=== PATIENT | male | born 1970 | race Caucasian/White ===

== ENCOUNTER 2022-04-20 19:59 | Emergency (ER) | payer MEDICAID, SELFPAY ==
[2022-04-20 20:03] VITALS: BP 179/107; PULSE 97; RESP 20; TEMP 35.7; O2SAT 96; BMI 45.1
--- NOTE | 2022-04-20 21:31 | EDS_ITS ---
HPI History of Present Illness Chief Complaint: Edema Detail of Chief Complaint: Swelling to abdomen and legs and shortness of breath Informant: patient Narrative Narrative: Patient presents the emergency department via EMS from home. Patient states that he was at his mother's house and felt like his abdomen and back and legs were swelling persistently. Patient was just discharged from [facility] where he spent 2 days admitted for CHF and hypercarbia related to his obesity and sleep apnea. Patient states that he thinks he had a echocardiogram and they told him the bottom of his heart was not functioning normally. Patient states that once he got home he did not realize he did not have his oxygen on him as he was supposed to be on 2 to 3 L of oxygen. He started feeling more short of breath and called EMS. Once they put him on oxygen started feeling back to his baseline. Patient tells me he weighs 375 pounds. Patient states he scheduled for gastric bypass. They made him follow-up appointments with cardiology. [facility] Medical History (Updated 04/20/22 @ 21:[address] Jasen Moncada DO) CHF (congestive heart failure) Diabetes Allergy/AdvReac Type Severity Reaction Status Date / Time hydrochlorothiazide AdvReac Chest Verified 04/20/22 20:03 tightness Social History Smoking Status: Former smoker ROS ROS ED Review of Systems ROS Unobtainable: other Constitutional Constitutional ED: Reports lethargy; Denies chills, fever(s), sweats or weight loss Eyes Eyes: Denies blurry vision, change in vision or diplopia ENT ENT ED: Denies rhinorrhea or sore throat Cardiovascular Cardiovascular: Reports other Details: Leg edema ; Denies chest pain, orthopnea or racing heartbeat Respiratory/Chest Respiratory/Chest: Reports dyspnea and dyspnea on exertion; Denies cough, orthopnea or sputum Gastrointestinal Gastrointestinal: Denies abdominal pain, diarrhea, nausea or vomiting Genitourinary Genitourinary ED: Denies dysuria, hematuria or urinary frequency Musculoskeletal Musculoskeletal: Denies arthralgias, back pain, myalgias or neck pain Integumentary Denies abscess, Abrasions or rash Neurologic Neurologic: Denies headache(s) or weakness Psychiatric Psychiatric: Denies anxiety, depression or suicidal thoughts Endocrine Endocrinology: Denies polydipsia, polyphagia or polyuria Hematologic/Lymphatic Hematologic/Lymphatic: Denies easy bleeding, easy bruising or lymphadenopathy Allergic/Immunologic Allergic/Immunologic ED: Denies mouth swelling, tongue swelling or urticaria EXAM Physical Exam Narrative Exam Narrative: Patient morbidly obese. Const Vital Signs: 04/20/22 20:03 04/20/22 20:07 Temperature 96.3 F L Temperature Source Temporal Pulse Rate 97 Respiratory Rate 20 H Respiratory Effort Normal Respiratory Pattern Normal Blood Pressure 179/107 H Blood Pressure Mean 131 Pulse Ox 96 Oxygen Delivery Method Nasal Cannula Oxygen Flow Rate (L/min) 3 Positive well nourished and well developed General Appearance ED: well developed and NAD HEENT Reports TM's clear and moist mucous membranes normocephalic and atraumatic; Negative for trauma or tenderness Tympanic Membrane ED: Yes TM's clear Eyes PERRL and EOMs intact bilaterally General Eye ED: Negative for pale conjunctiva or scleral icterus Neck no lymphadenopathy, supple and no JVD General: Negative for tenderness Chest Wall inspection of chest normal and palpation of chest normal Chest: Negative for tenderness Resp normal respiratory effort and clear to auscultation bilaterally Resp Narrative: No significant tachypnea. No sensory muscle use or retractions. Lungs are relatively clear with just a few faint crackles in the bases. Effort and Inspection: Negative for respiratory distress or pain with movement Auscultation: Negative for rhonchi, wheezes or diminished lung sounds Cardio regular rate, regular rhythm, S1 normal heart sound, S2 normal heart sound and no murmurs Peripheral Pulses: pulses 2+ throughout GI normal to inspection, nondistended, normoactive bowel sounds, soft to palpation, non-tender, non-distended and no masses GI Narrative: Patient does have edema to his abdomen. Back/Spine no CVA tenderness and no thoracic nor lumbar tenderness Extremity normal to inspection Extremity Narrative: +2 edema both lower extremities up to the thighs. General Extremety ED: Negative for edema General Extremity: Negative for edema Neuro oriented x3, CN's II-XII intact bilaterally, no sensory deficits noted and gait normal Sensorium / Orientation: awake, alert, oriented to person, oriented to place and oriented to time Motor Exam: strength 5/5 throughout and strength abnormal Psych mental status grossly normal Skin no rashes or lesions noted and no wounds MDM MDM MDM Narrative Medical decision making narrative: Patient tells me that he thinks that he may have jumped the gun and panicked. Patient states that he had a family member recently who came home and coded and then had to go back to the hospital and she ended up having fluid around her heart and lungs. Patient feels well currently. I discussed doing some basic labs and a chest x-ray and EKG to evaluate his condition further however he does not want me to pursue that since he was just discharged and thinks that he just had a panic episode regarding his condition and his oxygen not being on. Patient would like to be discharged home. Patient is in no respiratory distress and I feel it is reasonable to discharge him at this time. Patient advised to return if increasing shortness of breath or condition worsen anyway. Discharge Plan Triage Chief Complaint: Edema ED Provider: Jasen Moncada Dx/Rx/DC Orders Clinical Impression: CHF (congestive heart failure), Leg edema Instructions: ED Heart Failure, Congestive (CHF), ED Peripheral Edema, Bilateral Primary Care Provider: Andrea Alston Referrals: Andrea Alston MD [Primary Care Provider] - 3-5 Days Activity Restrictions/Additional Instructions: Follow-up with your film or tape librarian as advised. Disposition Disposition: Home, Self Care
[2022-04-20 22:12] VITALS: BP 167/93; PULSE 97; RESP 22; O2SAT 95
== END 2022-04-20 22:13 | disposition home or self-care (01) ==
PROVIDERS: Emergency Provider Emergency Medicine; PCP Family Medicine; Visit Provider Emergency Medicine
DX: R60.0 Localized edema (principal); I50.9 Heart failure, unspecified; E11.9 Type 2 diabetes mellitus without complications; R19.00 Intra-abdominal and pelvic swelling, mass and lump, unspecified site; M79.89 Other specified soft tissue disorders; R06.02 Shortness of breath; E66.9 Obesity, unspecified; Z87.891 Personal history of nicotine dependence
CPT/HCPCS: 99284

== ENCOUNTER 2023-02-28 16:55 | Inpatient (IN) | payer MEDICAID, SELFPAY ==
[2023-02-28] VITALS (10 sets, daily range): BP systolic 156–197; BP diastolic 85–125; PULSE 80–98; RESP 18–28; TEMP 36.6–36.7; O2SAT 79–96; BMI 64.9; BMI 61.5
--- NOTE | 2023-02-28 17:21 | NURSING ---
NO OLD EKGS
--- NOTE | 2023-02-28 17:23 | EDS_ITS ---
HPI History of Present Illness Chief Complaint: General Illness Detail of Chief Complaint: Increased leg swelling. Shortness of breath. Informant: patient Onset/Context/Timing Onset: Weeks Context: Gradual Onset Timing: Continuous Current Severity: Mild Maximum Severity: Mild Narrative Narrative: 53-year-old male history of CHF, diabetes and PTSD. States the last several weeks has been increasing weight. Been having increasing swelling in his legs. He has chronic peripheral edema. He has had CHF before and says this feels the same. Denies any chest pain. No fever. Also has a wound on his right knee when he fell several weeks ago. Now is red. Prior similar symptoms: Yes Recent Illness/Hospitalization: No PFSH PFSH Medical History Abdominal swelling Acute respiratory failure with hypoxia and hypercapnia ADHD Anxiety Asthenia CHF (congestive heart failure) Fluid overload GERD (gastroesophageal reflux disease) Hyperlipidemia MDD (major depressive disorder) Morbid obesity Neuropathy Obesity hypoventilation syndrome KAVON on CPAP Pain and swelling of lower leg PTSD (post-traumatic stress disorder) Type 2 diabetes mellitus Home Medications acetaminophen 650 mg tablet,extended release (Arthritis Pain Relief (acetaminophen) ER) 1,300 mg PO Q8H PRN pain 05/14/22 [History Last Taken Unknown] albuterol sulfate 90 mcg/actuation aerosol inhaler 2 puff inhalation Q6H PRN shortness of breath or wheezing 05/14/22 [History Last Taken Unknown] atorvastatin 40 mg tablet 40 mg PO QHS 05/14/22 [History Last Taken Unknown] furosemide 20 mg tablet 20 mg PO BID 05/14/22 [History Last Taken Unknown] insulin degludec 200 unit/mL (3 mL) subcutaneous pen (Tresiba FlexTouch U-200 insulin) 92 unit subcut DAILY 05/14/22 [History Last Taken Unknown] lisinopril 40 mg tablet 40 mg PO DAILY 05/14/22 [History Last Taken Unknown] omeprazole 40 mg capsule,delayed release 40 mg PO DAILY 05/14/22 [History Last Taken Unknown] potassium citrate 5 mEq (540 mg) tablet,extended release 5 meq PO DAILY 05/14/22 [History Last Taken Unknown] pregabalin 150 mg capsule 150 mg PO TID 05/14/22 [History Last Taken Unknown] insulin lispro 100 unit/mL subcutaneous pen (Humalog Tempo Pen (U-100) Insulin) 10 unit subcut TID 05/25/22 [History Last Taken Unknown] metoprolol tartrate 50 mg tablet 100 mg PO BID 05/25/22 [History Last Taken Unknown] Allergy/AdvReac Type Severity Reaction Status Date / Time hydrochlorothiazide AdvReac Chest Verified 02/28/23 16:57 tightness Family History Mother Diabetes Hypertension Hyperchloremia CAD (coronary artery disease) Father Diabetes Hypertension Hyperchloremia Surgical History Hx of cholecystectomy Hx of knee surgery Hx of tracheostomy Social History Smoking Status: Former smoker alcohol intake: never substance use type: marijuana caffeine: No ROS ROS ED ROS Narrative Orthopnea. Exertional dyspnea. Weight gain. Review of Systems ROS Unobtainable: Denies due to encephalopathy Constitutional Constitutional ED: Denies chills or fever(s) Eyes Eyes: Denies blurry vision ENT ENT ED: Denies ear pain Cardiovascular Cardiovascular: Reports orthopnea; Denies chest pain Respiratory/Chest Respiratory/Chest: Reports dyspnea, dyspnea on exertion and orthopnea; Denies cough Gastrointestinal Gastrointestinal: Denies abdominal pain, constipation, diarrhea, melena, nausea or vomiting Genitourinary Genitourinary ED: Denies dysuria or hematuria Musculoskeletal Musculoskeletal: Denies arthralgias Integumentary Denies abscess Neurologic Neurologic: Denies headache(s) Psychiatric Psychiatric: Denies anxiety or depression Hematologic/Lymphatic Hematologic/Lymphatic: Reports none Allergic/Immunologic Allergic/Immunologic ED: Denies mouth swelling, tongue swelling or urticaria EXAM Physical Exam Narrative Exam Narrative: 53-year-old male no acute distress other than his pulse ox was 85% in triage on room air. 93% on 2 L. H EENT exam unremarkable. Neck nontender no JVD. Lungs clear to auscultation bilaterally. Heart regular rhythm no appreciable murmur. Abdomen soft nontender. Moving all 4 extremities. 1+ pitting edema both lower extremities. Neurologically is awake and alert no focal motor deficits. Exam is consistent with CHF. He also has a wound on his right knee about the size of a quarter and has some mild surrounding cellulitis. There is no purulent discharge at this time. No lymphangitic streaking. The knee itself he has normal range of motion and no signs of septic joint or septic bursitis. Const Vital Signs: 02/28/23 16:57 02/28/23 17:06 02/28/23 19:20 Temperature 97.9 F Temperature Source Temporal Pulse Rate 85 Respiratory Rate 19 H Blood Pressure 184/91 H Blood Pressure Mean 122 Pulse Ox 85 93 79 Oxygen Delivery Method Room Air Nasal Cannula Room Air Oxygen Flow Rate (L/min) 2 02/28/23 19:20 Temperature Temperature Source Pulse Rate 98 Respiratory Rate 28 H Blood Pressure 173/98 H Blood Pressure Mean 123 Pulse Ox 92 Oxygen Delivery Method Nasal Cannula Oxygen Flow Rate (L/min) 3 Positive well nourished, well developed and obese; Negative for cachectic, contractures or unkempt General Appearance ED: well developed and NAD; Negative for unkempt, cachectic, contractures, cyanotic or diaphoretic Nutritional Appearance: obese; Negative for cachectic HEENT Reports moist mucous membranes Negative for trauma or tenderness Eyes PERRL and EOMs intact bilaterally General Eye ED: Negative for pale conjunctiva or scleral icterus Neck no lymphadenopathy, supple and no JVD General: Negative for tenderness Lymph Lymphatic: Negative for other Chest Wall inspection of chest normal and palpation of chest normal Resp normal respiratory effort and clear to auscultation bilaterally Effort and Inspection: Negative for retractions Auscultation: Negative for rales, rhonchi or wheezes Cardio regular rate, regular rhythm, S1 normal heart sound, S2 normal heart sound and no murmurs GI normal to inspection, nondistended, normoactive bowel sounds, non-tender, non- distended and no masses Inspection: Negative for abdominal distention Auscultation: normoactive bowel sounds Palpation: soft; Negative for tender or guarding Back/Spine no CVA tenderness Extremity normal to inspection General Extremety ED: Yes edema; Negative for tenderness General Extremity: edema Neuro oriented x3 and CN's II-XII intact bilaterally Sensorium / Orientation: alert Motor Exam: strength 5/5 throughout Psych mental status grossly normal Appearance: Negative for unkempt Attitude: No agitated Mood & Affect: Negative for depressed, anxious or tearful Skin no rashes or lesions noted and No no wounds Skin Narrative: Wound right knee. Minimal surrounding cellulitis. Lesions: No lesion noted Rashes: rashes noted Trauma: Negative for abrasion Wounds: wounds noted Image ED - Body Diagram Man: 1. Quarter sized wound with surrounding cellulitis. No septic knee nor septic bursitis. MDM MDM MDM Narrative Medical decision making narrative: 53-year-old male history of CHF with weight gain and increasing shortness of breath including orthopnea. Hypoxic in triage on room air 85%. 93% on 2 L. Will undergo a CHF work-up. He also incidentally has a right knee wound infection with mild surrounding cellulitis. Repeat exam patient is doing well at 8:02 PM. He is on oxygen his sat went from 85 to 98% on 3 L. He was also given Lasix. He will be admitted for congestive heart failure the hospitalist on page. Patient be treated with IV Lasix. History & Record Review Discussion w/independent historian: Patient Additional record(s) reviewed:: Prior inpatient record, Prior outpatient record, Prior ED visit and Prior labs Lab Data Attestation: I reviewed the patient's lab results. Lab results narrative: CBC shows a white count of 10 H&H of 14 and 49. Platelets 242. Electrolytes show sodium 142 gap of 3 normal BUN and creatinine is 17 and 1. Glucose of 258. Troponin is normal at 19. BNP is only 94. Chest x-ray is consistent with congestive heart failure. Labs: Laboratory Results - last 24 hr 02/28/23 17:20 WBC 10.7 RBC 5.95 Hgb 14.9 Hct 49.4 MCV 83.0 MCH 25.0 L MCHC 30.2 L RDW Std Deviation 42.6 RDW Coeff of Nohemi 14.2 Plt Count 242 MPV 10.5 Immature Gran % (Auto) 0.400 Neut % (Auto) 74.2 H Lymph % (Auto) 19.2 Gage % (Auto) 4.1 Eos % (Auto) 1.7 Baso % (Auto) 0.4 Absolute Neuts (auto) 8.0 H Absolute Lymphs (auto) 2.06 Nucleated RBC % 0 Sodium 142 Potassium 3.9 Chloride 101 Carbon Dioxide 38.0 H Anion Gap 3 L BUN 17 Creatinine 1.11 Estim Creat Clear Calc 78.73 Est GFR (MDRD) Af Amer 90 Est GFR (MDRD) Non-Af 74 BUN/Creatinine Ratio 15.3 Glucose 258 H Calcium 8.4 L Troponin I High Sens 19 B-Natriuretic Peptide 94.1 Radiography Chest X-Ray - ED: 1 View, Read by ED Physician, Mediastinum, Bony Structures, Cardiomegaly and CHF Diagnostic Testing: Clinical Impression(s) from Imaging Studies Chest X-Ray 02/28/23 17:30 IMPRESSION: Mild congestive heart failure. Electronically Signed: Alverto Lozano MD at 18:15 EDT , Chest x-ray, portable, single view, interpreted both myself and radiologist shows cardiomegaly and CHF. Rhythm Strip Rhythm Strip: Sinus Rhythm Rate: 83 Ectopy: None EKG Initial EKG: Attestation: I personally reviewed and interpreted this EKG as follows: Interpretation: Sinus Rhythm and No Acute Injury Pattern Comments: Normal sinus rhythm rate 83 no acute signs of OK or ischemia. Discharge Plan Dx/Rx/DC Orders Clinical Impression: CHF (congestive heart failure), Hypoxia, History of diabetes mellitus, Cellulitis of knee, right Disposition Disposition: Acute Care Hospital [facility]
--- NOTE | 2023-02-28 17:30 | RAD_ITS ---
STUDY: X-RAY CHEST REASON FOR EXAM: Male, 53 years old. chest pain TECHNIQUE: Single AP portable view of the chest. COMPARISON: None. FINDINGS: The lungs are clear and expanded. There is no demonstrated pleural abnormality. There is moderate cardiac enlargement. Normal mediastinum and kevin. There is prominence of the pulmonary hilar arteries and peripheral pulmonary arteries, consistent with congestive heart failure (CHF). Normal visualized aortic arch and descending thoracic aorta. Normal visualized thoracic spine. Normal visualized ribs, clavicles, and shoulders. There is no demonstrated abnormality of the visualized soft tissue structures of the upper abdomen. RAD/Chest 1 View (Portable) IMPRESSION: Mild congestive heart failure. Electronically Signed: Alverto Lozano MD at 18:15 EDT ,
[2023-02-28] MEDS: Furosemide 40 MG/4 ML Vial IV (17:32)
[2023-02-28 17:34] LABS: Absolute Lymphocyte Count 2.06 X10^3/uL (0.83-4.51); Basophil# 0.04 X10^3/uL; Basophil% 0.4 % (0-1); Eosinophil# 0.18 X10^3/uL; Eosinophils% 1.7 % (0-5); Hematocrit 49.4 % (40-54); Hemoglobin 14.9 g/dL (13.0-16.5); Lymphocyte # 2.06 X10^3/ul (0.83-4.51); Lymphocyte % 19.2 % (19-41); Mean Corp Hgb Conc 30.2 g/dL (32-36); Mean Platelet Vol. 10.5 fl (6.2-12.0); Monocyte# 0.44 X10^3/uL; Monocyte% 4.1 % (0-10); NRBC Flagged by Analyzer 0 % (0-5); Neutrophil # 7.97 X10^3/uL (2.7-7.7); Neutrophil % 74.2 % (47-70); Platelet Count 242 K/mm3 (150-450); RBC Distribution Width CV 14.2 % (11.6-14.6); RBC Distribution Width SD 42.6 fl (35.1-43.9); Red Blood Count 5.95 M/mm3 (4.6-6.2); White Blood Count 10.7 K/mm3 (4.4-11.0)
[2023-02-28 18:02] LABS: BNP,B-Type NATRIURETIC PEPTIDE 94.1 pg/mL (0-100)
[2023-02-28 18:20] LABS: Anion Gap 3 (5-15); BUN 17 mg/dL (7-18); BUN/Creat Ratio 15.3 RATIO (10-20); Calcium,Total 8.4 mg/dL (8.5-10.1); Chloride 101 mmol/L (98-107); Creatinine, Serum 1.11 mg/dL (0.70-1.30); EST Glomerular Filtration Rate 74 mL/min (>60); Est Glom Filt Rate - Afr Amer 90 mL/min (>60); Estimated Creatinine Clearance 78.73 ml/min; Glucose 258 mg/dL (74-106); Potassium 3.9 mmol/L (3.5-5.1); Sodium Level 142 mmol/L (136-145); Troponin-I HS 19 pg/mL (3.0-78.0)
--- NOTE | 2023-02-28 20:46 | ED.RN ---
this nurse called [facility] and explained that the pt did not receive his keflex 500mg po. this nurse sent to [facility] via tube system.
--- NOTE | 2023-02-28 20:57 | HP.PCM.HOS_ITS ---
HPI - General General Date of Admission: 02/28/23 Date of Service: 02/28/23 Chief Complaint: Patient came to ER for right knee wound. He also has weight gain, leg swelling dyspnea on exertion and features of heart failure HPI Narrative EVERARDO OLIVAS, is a 53 M came to ED who for increased weight gain, increased swelling in the legs and peripheral edema. He is not very clear exactly how much weight gain in how much time but he states 50 to 60 pounds in couple months. Patient pulse ox is also low 85% on room air in ED. Is well he is not on oxygen at home. 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 He states he had an echo recently this year and EF was 53%. Patient denies chest pain pressure or tightness. No fever. Apparently patient had also fall several weeks ago and had right knee wound. He said it was scabbing then he scratched and he again fell down couple days ago and now seems worsening. Looks dry with no discharge. In ED BP was high at 180/91. Afebrile required 2 to 3 L of oxygen. Chest x-ray reviewed shows pulmonary venous congestion/edema/2 mild congestive heart failure. Twelve-lead EKG showed normal sinus rhythm QTc 455 ms, low voltage QRS complexes. Patient is given Lasix and Keflex and further admitted. [facility] Medical History Abdominal swelling Acute respiratory failure with hypoxia and hypercapnia ADHD Anxiety Asthenia CHF (congestive heart failure) Fluid overload GERD (gastroesophageal reflux disease) Hyperlipidemia MDD (major depressive disorder) Morbid obesity Neuropathy Obesity hypoventilation syndrome KAVON on CPAP Pain and swelling of lower leg PTSD (post-traumatic stress disorder) Type 2 diabetes mellitus Home Medications acetaminophen 650 mg tablet,extended release (Arthritis Pain Relief (acetaminophen) ER) 1,300 mg PO Q8H PRN pain 05/14/22 [History Last Taken Unknown] albuterol sulfate 90 mcg/actuation aerosol inhaler 2 puff inhalation Q6H PRN shortness of breath or wheezing 05/14/22 [History Last Taken Unknown] atorvastatin 40 mg tablet 40 mg PO QHS cholesterol 05/14/22 [History Last Taken 02/27/23] insulin degludec 200 unit/mL (3 mL) subcutaneous pen (Tresiba FlexTouch U-200 insulin) 92 unit subcut DAILY diabetes 05/14/22 [History Last Taken 02/27/23] lisinopril 40 mg tablet 40 mg PO BID blood pressure 05/14/22 [History Last Taken 02/28/23 10:00] omeprazole 40 mg capsule,delayed release 40 mg PO DAILY acid reflux 05/14/22 [History Last Taken 02/28/23] potassium citrate 5 mEq (540 mg) tablet,extended release 5 meq PO BID potassium supplement 05/14/22 [History Last Taken 02/28/23 10:00] pregabalin 150 mg capsule 150 mg PO TID neuropathy 05/14/22 [History Last Taken Unknown] insulin lispro 100 unit/mL subcutaneous pen (Humalog Tempo Pen (U-100) Insulin) 10 unit subcut TIDCM diabetes 05/25/22 [History Last Taken Unknown] metoprolol tartrate 50 mg tablet 50 mg PO BID heart 05/25/22 [History Last Taken 02/28/23 10:00] amlodipine 5 mg tablet 5 mg PO DAILY blood pressure 02/28/23 [History Last Taken 02/28/23] furosemide 40 mg tablet 40 mg PO BID diuretic 02/28/23 [History Last Taken 02/28/23 10:00] spironolactone 25 mg tablet 25 mg PO DAILY diuretic 02/28/23 [History Last Taken 02/28/23] Allergy/AdvReac Type Severity Reaction Status Date / Time hydrochlorothiazide AdvReac Chest Verified 02/28/23 16:57 tightness Family History (Updated 02/28/23 @ 21:37 by Kristal Rizzo) Mother Diabetes CAD (coronary artery disease) Hypertension Hyperchloremia Non-alcoholic cirrhosis Father Diabetes Hypertension Hyperchloremia Surgical History Hx of cholecystectomy Hx of knee surgery Hx of tracheostomy Social History Smoking Status: Former smoker alcohol intake: never substance use type: marijuana caffeine: No ROS ROS Narrative Constitutional: Reports fatigue and weakness. No fever. Morbid obesity. HEENT: Reports systems reviewed and no addt'l complaints, except as documented Respiratory/Chest: Exertional dyspnea. CVS: No chest pain pressure or tightness. Gastrointestinal: Denies coffee ground emesis, hematemesis or vomiting Genitourinary: Denies burning urination or new urinary tract symptoms. No decrease in urine output. Musculoskeletal: Patient mainly on wheelchair states because of neuropathy of the legs and arthritis. Denies acute joint pain or limited range of motion. Neurologic: Denies seizure-like symptoms. Denies strokelike symptoms. skin: Fall with ulcer was healing and then again a fall with surrounding redness cellulitis. Endocrinology: Reports systems reviewed and no addt'l complaints, except as documented Hematologic/Lymphatic: Reports systems reviewed and no addt'l complaints, except as documented Rest 14 ROS are negative except as mentioned in HPI Vital Signs Vital Signs Vital Signs: 02/28/23 16:57 02/28/23 17:06 02/28/23 19:20 Temperature 97.9 F Temperature Source Temporal Pulse Rate 85 Respiratory Rate 19 H Blood Pressure 184/91 H Blood Pressure Mean 122 Pulse Ox 85 93 79 Oxygen Delivery Method Room Air Nasal Cannula Room Air Oxygen Flow Rate (L/min) 2 02/28/23 19:20 02/28/23 20:39 02/28/23 20:39 Temperature Temperature Source Pulse Rate 98 80 80 Respiratory Rate 28 H 24 H 24 H Blood Pressure 173/98 H 195/95 H 195/95 H Blood Pressure Mean 123 128 128 Pulse Ox 92 96 96 Oxygen Delivery Method Nasal Cannula Nasal Cannula Oxygen Flow Rate (L/min) 3 3 02/28/23 20:54 Temperature 98.0 F Temperature Source Oral Pulse Rate 88 Respiratory Rate 20 H Blood Pressure 194/125 H Blood Pressure Mean 148 Pulse Ox 94 Oxygen Delivery Method Nasal Cannula Oxygen Flow Rate (L/min) 3 Weight Weight: 439 lb 9.628 oz Body Mass Index (BMI) 64.9 Physical Exam Narrative General: Alert, Oriented x3, Cooperative. BMI 64.9 kg/m? HEENT: Atraumatic, PERRLA, EOMI, Normocephalic Oral: Oral mucosa dry. No Gingival or Mucosal Lesions/ Ulcerations Neck: Supple, No JVD, Negative Carotid Bruits Lungs: Air entry diminished in bilateral lung bases. Bilateral fine crepitation although difficult to hear Cardiovascular: Regular rate, Regular Rhythm, Normal S1, Normal S2, No murmurs Abdomen: Bowel Sounds Present, Soft, Non Tender, Non-Distended : No renal angle tenderness. No suprapubic tenderness. Extremities: 3+ bilateral lower extremity edema below thigh level, Capillary Refill Less than 3 Seconds Skin: Erythema, mild tenderness Around knee. Scab wound on kneecap/ infrapatellar region with no obvious discharge. Musculoskeletal: No Tenderness to Palpation of Joints or Extremities. ROM severely restricted due to morbid obesity and neuropathy Neurological: Cranial nerves II-XII grossly intact, DTR 2+/4. No acute focal neurological deficit. Psych/Mental Status: flat affect. Results Lab / Micro Data 02/28/23 17:20 02/28/23 17:20 Labs: Laboratory Results - last 24 hr 02/28/23 17:20: WBC 10.7, RBC 5.95, Hgb 14.9, Hct 49.4, MCV 83.0, MCH 25.0 L, MCHC 30.2 L, RDW Std Deviation 42.6, RDW Coeff of Nohemi 14.2, Plt Count 242, MPV 10.5, Immature Gran % (Auto) 0.400, Neut % (Auto) 74.2 H, Lymph % (Auto) 19.2, [place] % (Auto) 4.1, Eos % (Auto) 1.7, Baso % (Auto) 0.4, Absolute Neuts (auto) 8.0 H, Absolute Lymphs (auto) 2.06, Nucleated RBC % 0, Sodium 142, Potassium 3.9, Chloride 101, Carbon Dioxide 38.0 H, Anion Gap 3 L, BUN 17, Creatinine 1.11, Estim Creat Clear Calc 78.73, Est GFR (MDRD) Af Amer 90, Est GFR (MDRD) Non-Af 74, BUN/Creatinine Ratio 15.3, Glucose 258 H, Calcium 8.4 L, Troponin I High Sens 19, B-Natriuretic Peptide 94.1 Rhythm Strip Rhythm Strip: Sinus Rhythm Rate: 83 Ectopy: None Radiology Impression Chest X-Ray 02/28/23 17:30 IMPRESSION: Mild congestive heart failure. Electronically Signed: Alverto Lozano MD at 18:15 EDT , Assessment & Plan Assessment/Plan (1) Acute on chronic heart failure with normal ejection fraction: PLAN: Plan 1. 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 In the our system godwin cardozo had echo in [place] from 04/27/2022. It was of poor quality.Patient 2D echo on 04/19/2022 reported LV not well visualized cannot comment on wall motion or EF. RV not well visualized. Estimated right atrial pressure 15 IVC dilated. RVSP 46 mmHg. I think patient also had 2D echo in cardiology office. Started on Lasix 40 mg IV twice daily. Heart failure core measures including intake and output, fluid restriction less than 1500 mL, daily weight monitoring, kidney and electrolytes monitoring. Patient on metoprolol 100 mg twice daily. Patient saw Dr. Peterson in the office in May 2022. Had negative dobutamine stress test in 2020. 2 serial troponins are negative therefore ACS ruled out. Patient did not have chest pain or pressure. BNP spuriously low due to morbid obesity. 2. Uncontrolled hypertension: Blood pressure in systolic 180s to 190s. Continue home medication lisinopril 40 mg daily. Started on Hydralazine and nitrate for control of blood pressure and heart failure exacerbation. Labetalol 20 mg IV as needed for SBP more than 190 mmHg. 3. Uncontrolled diabetes mellitus: Patient has type 2 diabetes mellitus. Glucose 258. 4. Right knee wound with a scab from fall and surrounding cellulitis: Started on IV ceftriaxone daily. Wound care nurse ordered. Knee x-ray shows no radiographic evidence of osteomyelitis. Severe arthrosis. 5. Super morbid obesity with obstructive sleep apnea/obesity hypoventilation syndrome on CPAP: CPAP ordered. Need to follow-up in pulmonary clinic. As per last cardiology visit patient is high risk for morbid obesity surgery also. 6. Multiple other comorbidities include GERD, hyperlipidemia, bilateral peripheral neuropathy, degenerative arthritis of knees, PTSD and ADHD: Home medication reconciliation done. Living will/advanced directive/end of life care: Patient does not have living will or advanced directive. Patient does not have designated power of caving guide for health. After discussion of benefits/risks procedures involved with full code, DNR CC arrest and DNR CC, the patient opted for full code. Patient does want artificial life support including intubation, tube feed, ventilator and/chest compression, central venous catheter, vasopressor and DC shock if needed Total time spent in [id number] encounter in discussion of advanced directive 17 minutes. Laboratory Results 02/28/23 17:20: WBC 10.7, RBC 5.95, Hgb 14.9, Hct 49.4, MCV 83.0, MCH 25.0 L, MCHC 30.2 L, RDW Std Deviation 42.6, RDW Coeff of Nohemi 14.2, Plt Count 242, MPV 10.5, Immature Gran % (Auto) 0.400, Neut % (Auto) 74.2 H, Lymph % (Auto) 19.2, [place] % (Auto) 4.1, Eos % (Auto) 1.7, Baso % (Auto) 0.4, Absolute Neuts (auto) 8.0 H, Absolute Lymphs (auto) 2.06, Nucleated RBC % 0, Sodium 142, Potassium 3.9, Chloride 101, Carbon Dioxide 38.0 H, Anion Gap 3 L, BUN 17, Creatinine 1.11, Estim Creat Clear Calc 78.73, Est GFR (MDRD) Af Amer 90, Est GFR (MDRD) Non-Af 74, BUN/Creatinine Ratio 15.3, Glucose 258 H, Calcium 8.4 L, Troponin I High Sens 19, B-Natriuretic Peptide 94.1 Charges/Coding Visit Charges Inpatient E&M: 03210 Init Hosp L3 Procedures Hospitalists Procedures: 12351 Advncd Care Plan 30 Min
--- NOTE | 2023-02-28 21:30 | NURSING ---
when this RN entered the room pt stated he took 92 units of long acting insulin. Pt explained this is what he takes at home but he hadnt taken it today. This RN educated not to give himself any more medications. All medications locked in the home med cabinet.
--- NOTE | 2023-02-28 21:48 | RAD_ITS ---
STUDY: X-RAY - RIGHT KNEE REASON FOR EXAM: Male, 53 years old. wound -- R/O Osteomyelitis TECHNIQUE: 4 view(s) of the knee. COMPARISON: None. FINDINGS: Normal visualized distal femur. Normal visualized proximal tibia and fibula. Normal proximal tibiofibular articulation. There is severe degenerative arthrosis of the medial femorotibial compartment with severe joint space narrowing. There is severe degenerative arthrosis of the lateral femorotibial compartment with severe joint space narrowing. There is moderate degenerative arthrosis of the patellofemoral articulation. There is a moderate volume joint effusion. Soft tissue defect anteriorly consistent with a known ulcer. No bone destruction to suggest osteomyelitis. RAD/Knee 3 Views IMPRESSION: 1. Known ulcer anteriorly but no radiographic evidence of osteomyelitis. 2. Severe arthrosis. Electronically Signed: Alverto Lozano MD at 22:11 EDT ,
[2023-02-28] MEDS: Cephalexin 250 MG Capsule 500 MG PO (22:02)
[2023-02-28] MEDS: Metoprolol Tartrate 100 MG Tablet PO (22:11)
[2023-02-28] MEDS: Atorvastatin Calcium 40 MG Tablet PO (22:12)
[2023-02-28] MEDS: Insulin Lispro 100 UNIT/ML INSULN.PEN SC (22:12)
[2023-02-28] MEDS: hydrALAZINE 50 MG Tablet PO (22:12)
[2023-02-28] MEDS: Isosorbide DN 10 MG Tablet 5 MG PO (22:16)
[2023-02-28] MEDS: Ceftriaxone 1 GM/50 ML BAG IV (22:18)
[2023-02-28] MEDS: Pregabalin 50 MG Capsule 150 MG PO (22:43)
[2023-02-28] MEDS: oxyCODONE 5 MG Tablet PO (22:43)
[2023-02-28 23:10] LABS: Hemoglobin A1c 8.3 % (3.8-5.6); Magnesium 2.1 mg/dL (1.6-2.6); Troponin-I HS 22 pg/mL (3.0-78.0)
[2023-02-28 23:49] LABS: Troponin-I HS 21 pg/mL (3.0-78.0)
[2023-03-01] VITALS (11 sets, daily range): BP systolic 139–164; BP diastolic 73–92; PULSE 64–80; RESP 16–18; TEMP 36.5–36.7; O2SAT 93–96; BMI 62.6
[2023-03-01 03:21] LABS: Bedside Glucose 232 mg/dL (74-106)
[2023-03-01] MEDS: hydrALAZINE 50 MG Tablet PO ×3 (05:04→22:01)
[2023-03-01] MEDS: Pregabalin 50 MG Capsule 150 MG PO ×3 (05:04→22:10)
[2023-03-01] MEDS: Isosorbide DN 10 MG Tablet 5 MG PO ×3 (05:04→22:02)
[2023-03-01 05:46] LABS: Absolute Lymphocyte Count 2.77 X10^3/uL (0.83-4.51); Absolute Neutrophil Count 7.8 X10^3/uL (2.0-7.7); Basophil# 0.04 X10^3/uL; Basophil% 0.3 % (0-1); Eosinophil# 0.25 X10^3/uL; Eosinophils% 2.2 % (0-5); Hematocrit 47.1 % (40-54); Lymphocyte # 2.77 X10^3/ul (0.83-4.51); Lymphocyte % 23.9 % (19-41); Mean Corp Hgb Conc 29.7 g/dL (32-36); Mean Corpuscular Hgb 25.1 pg (27.0-32.0); Mean Corpuscular Volume 84.4 fL (80-94); Mean Platelet Vol. 10.3 fl (6.2-12.0); Monocyte# 0.63 X10^3/uL; Monocyte% 5.4 % (0-10); NRBC Flagged by Analyzer 0 % (0-5); Neutrophil # 7.83 X10^3/uL (2.7-7.7); Neutrophil % 67.8 % (47-70); Platelet Count 225 K/mm3 (150-450); RBC Distribution Width CV 14.2 % (11.6-14.6); RBC Distribution Width SD 43.2 fl (35.1-43.9); Red Blood Count 5.58 M/mm3 (4.6-6.2); White Blood Count 11.6 K/mm3 (4.4-11.0)
[2023-03-01 06:29] LABS: Anion Gap 0 (5-15); BUN 19 mg/dL (7-18); Calcium,Total 8.2 mg/dL (8.5-10.1); Chloride 103 mmol/L (98-107); Cholesterol 135 mg/dL (200); Creatinine, Serum 1.12 mg/dL (0.70-1.30); EST Glomerular Filtration Rate 73 mL/min (>60); Est Glom Filt Rate - Afr Amer 89 mL/min (>60); Estimated Creatinine Clearance 78.03 ml/min; Glucose 156 mg/dL (74-106); High Density Lipoprotein 31 mg/dL; Potassium 3.8 mmol/L (3.5-5.1); Sodium Level 141 mmol/L (136-145); Thyroid Stim Hormone (TSH) 1.96 uIU/mL (0.358-3.74); Triglycerides 138 mg/dL; Very Low Density Lipoprotein 28 mg/dL (5-40)
[2023-03-01 08:11] LABS: Bedside Glucose 126 mg/dL (74-106)
--- NOTE | 2023-03-01 08:49 | PN.HOSP_ITS ---
Reason for Visit Reason for Visit: Diagnoses Acute on chronic diastolic (congestive) heart failure (02/28/23) Subjective Subjective Breathing ok. Has put on 60 pounds in the past several months. Does not weight himself daily. Objective Data Objective Data Vital Signs: Vital Signs Temp Pulse Resp BP Pulse Ox O2 Del Method O2 Flow Rate 36.7 C 64 18 154/73 H 93 Nasal Cannula 3 03/01/23 05:00 03/01/23 05:04 03/01/23 05:00 03/01/23 05:04 03/01/23 05:00 03/01/23 07:59 03/01/23 07:59 Oxygen Flow Rate (L/min) 3 Oxygen Delivery Method Nasal Cannula Weight: 192.6 kg Body Mass Index (BMI) 62.6 Intake & Output: Intake and Output for Last 24 Hours 02/27/23 02/28/23 03/01/23 23:59 23:59 23:59 Intake Total 50 / 50 Balance 50 / 50 Lab / Micro Data 03/01/23 05:29 03/01/23 05:29 Labs: Laboratory Results - last 24 hr 02/28/23 17:20: WBC 10.7, RBC 5.95, Hgb 14.9, Hct 49.4, MCV 83.0, MCH 25.0 L, MCHC 30.2 L, RDW Std Deviation 42.6, RDW Coeff of Nohemi 14.2, Plt Count 242, MPV 10.5, Immature Gran % (Auto) 0.400, Neut % (Auto) 74.2 H, Lymph % (Auto) 19.2, [place] % (Auto) 4.1, Eos % (Auto) 1.7, Baso % (Auto) 0.4, Absolute Neuts (auto) 8.0 H, Absolute Lymphs (auto) 2.06, Nucleated RBC % 0, Sodium 142, Potassium 3.9, Chloride 101, Carbon Dioxide 38.0 H, Anion Gap 3 L, BUN 17, Creatinine 1.11, Estim Creat Clear Calc 78.73, Est GFR (MDRD) Af Amer 90, Est GFR (MDRD) Non-Af 74, BUN/Creatinine Ratio 15.3, Glucose 258 H, Calcium 8.4 L, Troponin I High Sens 19, B-Natriuretic Peptide 94.1 02/28/23 21:58: Hemoglobin A1c 8.3 H, Magnesium 2.1, Troponin I High Sens 22 02/28/23 22:01: POC Glucose 232 H 02/28/23 22:55: Troponin I High Sens 21 03/01/23 05:29: WBC 11.6 H, RBC 5.58, Hgb 14.0, Hct 47.1, MCV 84.4, MCH 25.1 L, MCHC 29.7 L, RDW Std Deviation 43.2, RDW Coeff of Nohemi 14.2, Plt Count 225, MPV 10.3, Immature Gran % (Auto) 0.400, Neut % (Auto) 67.8, Lymph % (Auto) 23.9, [place] % (Auto) 5.4, Eos % (Auto) 2.2, Baso % (Auto) 0.3, Absolute Neuts (auto) 7.8 H, Absolute Lymphs (auto) 2.77, Nucleated RBC % 0, Sodium 141, Potassium 3.8, Chloride 103, Carbon Dioxide 38.0 H, Anion Gap 0 L, BUN 19 H, Creatinine 1.12, Estim Creat Clear Calc 78.03, Est GFR (MDRD) Af Amer 89, Est GFR (MDRD) Non-Af 73, BUN/Creatinine Ratio 17.0, Glucose 156 H, Calcium 8.2 L, Triglycerides 138, Cholesterol 135, LDL Cholesterol 76, VLDL Cholesterol 28, HDL Cholesterol 31 L, TSH 1.96 03/01/23 07:51: POC Glucose 126 H Radiography Diagnostic Testing: Radiology Impression Chest X-Ray 02/28/23 17:30 IMPRESSION: Mild congestive heart failure. Electronically Signed: Alverto Lozano MD at 18:15 EDT Reading Location ID and State: [id number] / [employer] , Service support , Knee X-Ray 02/28/23 21:48 IMPRESSION: 1. Known ulcer anteriorly but no radiographic evidence of osteomyelitis. 2. Severe arthrosis. Electronically Signed: Alverto Lozano MD at 22:11 EDT Reading Location ID and State: [id number] / [employer] , Service support , Rhythm Strip Rhythm Strip: Sinus Rhythm Rate: 83 Ectopy: None Physical Exam Const alert and no apparent distress HEENT head/scalp atraumatic and moist oral mucous membranes Resp normal respiratory effort, no retractions, no use of accessory muscles and clear to auscultation bilaterally Cardio regular rate, regular rhythm, S1 normal heart sound and S2 normal heart sound GI normal to inspection, nondistended, normoactive bowel sounds GI Narrative: abdominal wall edeam. Extremity General Extremity: edema bilateral lower extremity Details: severe Neuro Sensorium / Orientation: awake and alert Assessment & Plan Assessment/Plan (1) Acute on chronic heart failure with normal ejection fraction: PLAN: Acute on chronic HFpEF with chronic cor pulmonale/pulmonary hypertension: Echo from [place] from 04/27/2022. It was of poor quality.Patient 2D echo on 04/19/2022 reported LV not well visualized cannot comment on wall motion or EF. RVSP 46 mmHg. Started on Lasix 40 mg IV twice daily. Will increase to 60 TID. Patient on metoprolol 100 mg twice daily. Had negative dobutamine stress test in 2020. 2 serial troponins are negative therefore ACS ruled out. Patient did not have chest pain or pressure. BNP spuriously low due to morbid obesity. Fluid restrict 1.5 liters/d. Patient was drinking at least 1/2 gallon of liquids/day. (2) Hypertensive urgency: PLAN: Uncontrolled hypertension: Blood pressure in systolic 180s to 190s. Continue home medication lisinopril 40 mg daily. Started on Hydralazine and nitrate for control of blood pressure and heart failure exacerbation. Labetalol 20 mg IV as needed for SBP more than 190 mmHg. PLAN: Plan Chronic conditions: * Uncontrolled diabetes mellitus: Patient has type 2 diabetes mellitus. Glucose 258. a1c 8.3. Continue glargine, prandial insulin, SSI. * Right knee wound with a scab from fall and surrounding cellulitis: Started on IV ceftriaxone daily. Wound care nurse ordered. Knee x-ray shows no radiographic evidence of osteomyelitis. Severe arthrosis. * Super morbid obesity with obstructive sleep apnea/obesity hypoventilation syndrome on CPAP: CPAP ordered. Need to follow-up in pulmonary clinic. As per last cardiology visit patient is high risk for morbid obesity surgery also. * GERD: PPI * hyperlipidemia * bilateral peripheral neuropathy * degenerative arthritis of knees * PTSD * ADHD. * HTN: metoprolol, linsipril, metoprolol, * nicotine abuse: chews a can/d. nicotine patch. VTE prophylaxis: LMWH Code status: full Charges/Coding Visit Charges Inpatient E&M: 53012 Subs Hosp L2
[2023-03-01] MEDS: Pantoprazole Sodium 40 MG Tablet PO (09:52)
[2023-03-01] MEDS: Spironolactone 25 MG Tablet PO (09:52)
[2023-03-01] MEDS: amLODIPine 5 MG Tablet PO (09:52)
[2023-03-01] MEDS: Lisinopril 40 MG Tablet PO (09:53)
[2023-03-01] MEDS: Metoprolol Tartrate 100 MG Tablet PO ×2 (09:53→22:01)
[2023-03-01] MEDS: 0.9% Saline Lock 10 ML Syringe IV (09:54)
[2023-03-01] MEDS: Furosemide 40 MG/4 ML Vial IV (09:54)
[2023-03-01] MEDS: Insulin Glargine-YFGN 100 UNIT/ML Pen 50 UNIT SC (09:55)
--- NOTE | 2023-03-01 11:30 | CASEMGMT ---
RN VALDO Face to Face with patient for initial transition planning/care coordination assessment. RN CM introduced self and role at [facility]. Patient lying in bed, alert and oriented. Patient willing to participate in assessment and is able to answer all questions appropriately. Care providers, pharmacy, and demographics verified. Patient wishes to discharge home, denies need for home health at this time. Patient states he has no further needs or concerns at this time. CM to follow for discharge planning needs that may arise. 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 Patient states it is hard to get into home and looking to building a ramp but trouble finding someone to install, [facility]. Patient states he is independent at home. Transportation: self, cousins DME/HHC: Patient has cane, walker, grab bars, bipap, wheelchair at home. Patient may benefit from tub bench. Will monitor for home oxygen, prefers [employer]. Patient has had [facility] in the past. Patient has been to [facility] in the past. Disposition Plan: Patient to discharge home with family support and follow-up plans in place. Rachelle GANDHI, RN, CM
[2023-03-01] MEDS: Influenza Virus Vac Quad 23-24 60 MCG/0.5 ML SYRINGE IM (11:48)
[2023-03-01] MEDS: Enoxaparin 40 MG/0.4 ML Syringe SC (11:49)
--- NOTE | 2023-03-01 11:58 | WOUNDNOTE ---
wound photo: right knee
[2023-03-01 12:11] LABS: Bedside Glucose 139 mg/dL (74-106)
[2023-03-01 17:47] LABS: Bedside Glucose 144 mg/dL (74-106)
[2023-03-01 21:40] LABS: Bedside Glucose 142 mg/dL (74-106)
[2023-03-01] MEDS: Furosemide 100 MG/10 ML Vial 60 MG IV (22:00)
[2023-03-01] MEDS: Atorvastatin Calcium 40 MG Tablet PO (22:02)
[2023-03-01] MEDS: Ceftriaxone 1 GM/50 ML BAG IV (22:12)
[2023-03-01] MEDS: Acetaminophen 325 MG Tablet 650 MG PO (22:25)
[2023-03-02] VITALS (14 sets, daily range): BP systolic 98–161; BP diastolic 50–89; PULSE 66–81; RESP 16–20; TEMP 36.4–36.7; O2SAT 93–97; BMI 62.0
[2023-03-02] MEDS: oxyCODONE 5 MG Tablet PO ×3 (00:20→22:46)
[2023-03-02] MEDS: Acetaminophen 325 MG Tablet 650 MG PO ×2 (06:18→22:47)
[2023-03-02] MEDS: hydrALAZINE 50 MG Tablet PO ×3 (06:19→22:30)
[2023-03-02] MEDS: Pregabalin 50 MG Capsule 150 MG PO ×3 (06:20→22:30)
[2023-03-02] MEDS: Isosorbide DN 10 MG Tablet 5 MG PO ×3 (06:20→22:31)
[2023-03-02] MEDS: Furosemide 100 MG/10 ML Vial 60 MG IV ×3 (06:24→22:32)
[2023-03-02] MEDS: 0.9% Saline Lock 10 ML Syringe IV ×2 (06:25→15:15)
[2023-03-02 06:54] LABS: Anion Gap 5 (5-15); BUN 25 mg/dL (7-18); BUN/Creat Ratio 22.5 RATIO (10-20); Calcium,Total 7.9 mg/dL (8.5-10.1); Chloride 103 mmol/L (98-107); Creatinine, Serum 1.11 mg/dL (0.70-1.30); EST Glomerular Filtration Rate 74 mL/min (>60); Est Glom Filt Rate - Afr Amer 90 mL/min (>60); Estimated Creatinine Clearance 78.73 ml/min; Glucose 118 mg/dL (74-106); Potassium 3.7 mmol/L (3.5-5.1); Sodium Level 143 mmol/L (136-145)
--- NOTE | 2023-03-02 08:47 | PN.HOSP_ITS ---
Reason for Visit Reason for Visit: Diagnoses Hypertensive urgency (02/28/23) Acute on chronic diastolic (congestive) heart failure (02/28/23) Subjective Subjective Decreased edema in LE. Objective Data Objective Data Vital Signs: Vital Signs Temp Pulse Resp BP Pulse Ox O2 Del Method O2 Flow Rate 36.6 C 66 20 H 147/76 H 93 Nasal Cannula 3 03/02/23 02:54 03/02/23 06:19 03/02/23 02:54 03/02/23 06:19 03/02/23 07:57 03/02/23 07:57 03/02/23 07:57 Oxygen Flow Rate (L/min) 3 Oxygen Delivery Method Nasal Cannula Weight: 190.509 kg Body Mass Index (BMI) 62.0 Intake & Output: Intake and Output for Last 24 Hours 02/28/23 03/01/23 03/02/23 23:59 23:59 23:59 Intake Total 850 / 850 150 / 150 Balance 850 / 850 150 / 150 Lab / Micro Data 03/01/23 05:29 03/02/23 05:54 Labs: Laboratory Results - last 24 hr 03/01/23 11:45: POC Glucose 139 H 03/01/23 17:10: POC Glucose 144 H 03/01/23 21:20: POC Glucose 142 H 03/02/23 05:54: Sodium 143, Potassium 3.7, Chloride 103, Carbon Dioxide 35.0 H, Anion Gap 5, BUN 25 H, Creatinine 1.11, Estim Creat Clear Calc 78.73, Est GFR (MDRD) Af Amer 90, Est GFR (MDRD) Non-Af 74, BUN/Creatinine Ratio 22.5 H, Glucose 118 H, Calcium 7.9 L Rhythm Strip Rhythm Strip: Sinus Rhythm Rate: 83 Ectopy: None Physical Exam Const alert and no apparent distress HEENT head/scalp atraumatic Head and Scalp: normocephalic Resp no retractions Extremity General Extremity: edema bilateral lower extremity Details: severe (slightly softer today. ) Neuro Sensorium / Orientation: awake and alert Assessment & Plan Assessment/Plan (1) Acute on chronic heart failure with normal ejection fraction: PLAN: Acute on chronic HFpEF with chronic cor pulmonale/pulmonary hypertension: Echo from [place] from 04/27/2022. It was of poor quality.Patient 2D echo on 04/19/2022 reported LV not well visualized cannot comment on wall motion or EF. RVSP 46 mmHg. Started on Lasix 40 mg IV twice daily. Will increase to 60 TID. Patient on metoprolol 100 mg twice daily. Had negative dobutamine stress test in 2020. 2 serial troponins are negative therefore ACS ruled out. Patient did not have chest pain or pressure. BNP spuriously low due to morbid obesity. Fluid restrict 1.5 liters/d. Patient was drinking at least 1/2 gallon of liquids/day. Pt showing motivation to follow dietary restrictions. (2) Hypertensive urgency: PLAN: Uncontrolled hypertension: Blood pressure in systolic 180s to 190s. Continue home medication lisinopril 40 mg daily. Started on Hydralazine and nitrate for control of blood pressure and heart failure exacerbation. Labetalol 20 mg IV as needed for SBP more than 190 mmHg. PLAN: Plan Chronic conditions: * Uncontrolled diabetes mellitus: Patient has type 2 diabetes mellitus. Glucose 258. a1c 8.3. Continue glargine, prandial insulin, SSI. * Right knee wound with a scab from fall and surrounding cellulitis: Started on IV ceftriaxone daily. Wound care nurse ordered. Knee x-ray shows no radiographic evidence of osteomyelitis. Severe arthrosis. * Super morbid obesity with obstructive sleep apnea/obesity hypoventilation syndrome on CPAP: CPAP ordered. Need to follow-up in pulmonary clinic. As per last cardiology visit patient is high risk for morbid obesity surgery also . * GERD: PPI * hyperlipidemia * bilateral peripheral neuropathy * degenerative arthritis of knees * PTSD * ADHD. * HTN: metoprolol, linsipril, metoprolol, * nicotine abuse: chews a can/d. nicotine patch. VTE prophylaxis: LMWH Code status: full Disposition: TBD. Would like to continue aggressive IV diuresis for another couple of days. Charges/Coding Visit Charges Inpatient E&M: 23240 Subs Hosp L2
[2023-03-02 09:41] LABS: Bedside Glucose 111 mg/dL (74-106)
[2023-03-02] MEDS: Spironolactone 25 MG Tablet PO (10:50)
[2023-03-02] MEDS: Pantoprazole Sodium 40 MG Tablet PO (10:50)
[2023-03-02] MEDS: Enoxaparin 40 MG/0.4 ML Syringe SC ×2 (10:56→22:30)
[2023-03-02] MEDS: Metoprolol Tartrate 100 MG Tablet PO ×2 (10:59→22:32)
[2023-03-02] MEDS: amLODIPine 5 MG Tablet PO (10:59)
[2023-03-02] MEDS: Lisinopril 40 MG Tablet PO (10:59)
[2023-03-02] MEDS: Insulin Glargine-YFGN 100 UNIT/ML Pen 50 UNIT SC (11:04)
[2023-03-02] MEDS: Insulin Lispro 100 UNIT/ML INSULN.PEN 15 UNIT SC (11:05)
[2023-03-02] MEDS: Insulin Lispro 100 UNIT/ML INSULN.PEN SC (11:07)
[2023-03-02 12:59] LABS: Bedside Glucose 198 mg/dL (74-106)
--- NOTE | 2023-03-02 13:33 | WOUNDNOTE ---
wound photo: right knee
[2023-03-02 18:37] LABS: Bedside Glucose 133 mg/dL (74-106)
[2023-03-02] MEDS: hydrOXYzine 10 MG Tablet PO (19:17)
[2023-03-02] MEDS: Ceftriaxone 1 GM/50 ML BAG IV (22:29)
[2023-03-02] MEDS: Atorvastatin Calcium 40 MG Tablet PO (22:32)
[2023-03-02] MEDS: Senna/Docusate Sodium 1 Tablet 2 TABLET PO (22:33)
[2023-03-03] VITALS (14 sets, daily range): BP systolic 134–157; BP diastolic 59–91; PULSE 64–81; RESP 16–18; TEMP 35.7–36.8; O2SAT 95–97; BMI 62.1
[2023-03-03] MEDS: Isosorbide DN 10 MG Tablet 5 MG PO ×3 (05:54→21:53)
[2023-03-03] MEDS: Furosemide 100 MG/10 ML Vial 60 MG IV ×2 (05:55→21:55)
[2023-03-03] MEDS: hydrALAZINE 50 MG Tablet PO ×3 (05:55→21:54)
[2023-03-03] MEDS: Pregabalin 50 MG Capsule 150 MG PO ×3 (06:01→22:09)
[2023-03-03 06:05] LABS: Bedside Glucose 111 mg/dL (74-106)
[2023-03-03 07:15] LABS: Anion Gap 4 (5-15); BUN 33 mg/dL (7-18); BUN/Creat Ratio 23.7 RATIO (10-20); Calcium,Total 8.6 mg/dL (8.5-10.1); Chloride 101 mmol/L (98-107); Creatinine, Serum 1.39 mg/dL (0.70-1.30); EST Glomerular Filtration Rate 57 mL/min (>60); Est Glom Filt Rate - Afr Amer 69 mL/min (>60); Estimated Creatinine Clearance 62.87 ml/min; Glucose 112 mg/dL (74-106); Potassium 3.6 mmol/L (3.5-5.1); Sodium Level 142 mmol/L (136-145)
--- NOTE | 2023-03-03 10:58 | PCM.PN.HOSP ---
Reason for Visit Reason for Visit: Diagnoses Hypertensive urgency (02/28/23) Acute on chronic diastolic (congestive) heart failure (02/28/23) Subjective Subjective Still with edema. Objective Data Objective Data Vital Signs: Vital Signs Temp Pulse Resp BP Pulse Ox O2 Del Method O2 Flow Rate 36.6 C 72 16 143/81 H 96 Nasal Cannula 2 03/03/23 06:00 03/03/23 06:00 03/03/23 06:00 03/03/23 06:00 03/03/23 07:42 03/03/23 07:42 03/03/23 07:42 Oxygen Flow Rate (L/min) 2 Oxygen Delivery Method Nasal Cannula Weight: 191 kg Body Mass Index (BMI) 62.1 Intake & Output: Intake and Output for Last 24 Hours 03/01/23 03/02/23 03/03/23 23:59 23:59 23:59 Intake Total 850 / 850 1130 / 1500 640 / 640 Balance 850 / 850 1130 / 1500 640 / 640 Lab / Micro Data 03/01/23 05:29 03/03/23 06:03 Labs: Laboratory Results - last 24 hr 03/02/23 11:01: POC Glucose 198 H 03/02/23 17:22: POC Glucose 133 H 03/03/23 05:47: POC Glucose 111 H 03/03/23 06:03: Sodium 142, Potassium 3.6, Chloride 101, Carbon Dioxide 37.0 H, Anion Gap 4 L, BUN 33 H, Creatinine 1.39 H, Estim Creat Clear Calc 62.87, Est GFR (MDRD) Af Amer 69, Est GFR (MDRD) Non-Af 57 L, BUN/Creatinine Ratio 23.7 H, Glucose 112 H, Calcium 8.6 Rhythm Strip Rhythm Strip: Sinus Rhythm Rate: 83 Ectopy: None Physical Exam Const alert and no apparent distress HEENT head/scalp atraumatic Extremity General Extremity: edema bilateral lower extremity Details: severe (slight pitting to LE. ) Assessment & Plan Assessment/Plan (1) Acute on chronic heart failure with normal ejection fraction: PLAN: Acute on chronic HFpEF with chronic cor pulmonale/pulmonary hypertension: Echo from [facility] from 04/27/2022. It was of poor quality.Patient 2D echo on 04/19/2022 reported LV not well visualized cannot comment on wall motion or EF. RVSP 46 mmHg. Started on Lasix 40 mg IV twice daily. Will increase to 60 TID. Patient on metoprolol 100 mg twice daily. Had negative dobutamine stress test in 2020. 2 serial troponins are negative therefore ACS ruled out. Patient did not have chest pain or pressure. BNP spuriously low due to morbid obesity. Fluid restrict 1.5 liters/d. Patient was drinking at least 1/2 gallon of liquids/day. Pt showing motivation to follow dietary restrictions. (2) Hypertensive urgency: PLAN: Uncontrolled hypertension: Blood pressure in systolic 180s to 190s. Continue home medication lisinopril 40 mg daily. Started on Hydralazine and nitrate for control of blood pressure and heart failure exacerbation. Labetalol 20 mg IV as needed for SBP more than 190 mmHg. PLAN: Plan Chronic conditions: Uncontrolled diabetes mellitus: Patient has type 2 diabetes mellitus. Glucose 258. a1c 8.3. Continue glargine, prandial insulin, SSI. Right knee wound with a scab from fall and surrounding cellulitis: Started on IV ceftriaxone daily. Wound care nurse ordered. Knee x-ray shows no radiographic evidence of osteomyelitis. Severe arthrosis. Super morbid obesity with obstructive sleep apnea/obesity hypoventilation syndrome on CPAP: CPAP ordered. Need to follow-up in pulmonary clinic. As per last cardiology visit patient is high risk for morbid obesity surgery also. GERD: PPI hyperlipidemia bilateral peripheral neuropathy degenerative arthritis of knees PTSD ADHD. HTN: metoprolol, linsipril, metoprolol, nicotine abuse: chews a can/d. nicotine patch. VTE prophylaxis: LMWH Code status: full Disposition: TBD. Greater than 35 minutes of which greater than 50% of time was counseling patient about his diuresis, reinforcing dietary adherence. Patient also had other questions in regards to if he would require surgery for his heart, I informed him that he would likely not require any surgery. He has to what would help with his overall health. I told him he is already proceeding with that in regards to having a gastric bypass evaluate evaluation for surgery. Charges/Coding Visit Charges Inpatient E&M: 50268 Subs Hosp L2
[2023-03-03] MEDS: Metoprolol Tartrate 100 MG Tablet PO ×2 (11:28→21:56)
[2023-03-03] MEDS: Insulin Glargine-YFGN 100 UNIT/ML Pen 50 UNIT SC (11:28)
[2023-03-03] MEDS: Spironolactone 25 MG Tablet PO (11:28)
[2023-03-03] MEDS: Enoxaparin 40 MG/0.4 ML Syringe SC ×2 (11:29→21:57)
[2023-03-03] MEDS: amLODIPine 5 MG Tablet PO (11:29)
[2023-03-03] MEDS: Lisinopril 40 MG Tablet PO (11:30)
[2023-03-03] MEDS: Insulin Lispro 100 UNIT/ML INSULN.PEN 15 UNIT SC ×2 (11:30→16:31)
[2023-03-03] MEDS: Pantoprazole Sodium 40 MG Tablet PO (11:30)
[2023-03-03] MEDS: Insulin Lispro 100 UNIT/ML INSULN.PEN SC ×2 (11:31→16:32)
[2023-03-03 12:50] LABS: Bedside Glucose 168 mg/dL (74-106)
[2023-03-03 18:12] LABS: Bedside Glucose 198 mg/dL (74-106)
[2023-03-03 21:08] LABS: Bedside Glucose 141 mg/dL (74-106)
[2023-03-03] MEDS: Ceftriaxone 1 GM/50 ML BAG IV (21:53)
[2023-03-03] MEDS: Atorvastatin Calcium 40 MG Tablet PO (21:56)
[2023-03-04] VITALS (7 sets, daily range): BP systolic 137–144; BP diastolic 70–72; PULSE 68–74; RESP 15–16; TEMP 36.3–36.7; O2SAT 90–97; BMI 62.4
[2023-03-04] MEDS: oxyCODONE 5 MG Tablet PO (02:35)
[2023-03-04] MEDS: Isosorbide DN 10 MG Tablet 5 MG PO (05:10)
[2023-03-04] MEDS: hydrALAZINE 50 MG Tablet PO (05:10)
[2023-03-04] MEDS: Pregabalin 50 MG Capsule 150 MG PO (05:11)
[2023-03-04 08:11] LABS: Anion Gap 0 (5-15); BUN 37 mg/dL (7-18); BUN/Creat Ratio 29.6 RATIO (10-20); Calcium,Total 8.3 mg/dL (8.5-10.1); Chloride 103 mmol/L (98-107); Creatinine, Serum 1.25 mg/dL (0.70-1.30); EST Glomerular Filtration Rate 65 mL/min (>60); Est Glom Filt Rate - Afr Amer 78 mL/min (>60); Estimated Creatinine Clearance 69.91 ml/min; Glucose 119 mg/dL (74-106); Potassium 3.6 mmol/L (3.5-5.1); Sodium Level 138 mmol/L (136-145)
[2023-03-04] MEDS: Acetaminophen 325 MG Tablet 650 MG PO (08:35)
--- NOTE | 2023-03-04 08:46 | PN.HOSP_ITS ---
Reason for Visit Reason for Visit: Diagnoses Hypertensive urgency (02/28/23) Acute on chronic diastolic (congestive) heart failure (02/28/23) Subjective Subjective Feels ok. Still with edema. No shortness of breath. Objective Data Objective Data Vital Signs: Vital Signs Temp Pulse Resp BP Pulse Ox O2 Del Method O2 Flow Rate 36.7 C 74 15 144/70 H 96 Room Air 2 03/04/23 03:09 03/04/23 05:10 03/04/23 03:09 03/04/23 03:09 03/04/23 03:09 03/04/23 08:27 03/04/23 03:09 Oxygen Flow Rate (L/min) 2 Oxygen Delivery Method Room Air Weight: 191.7 kg Body Mass Index (BMI) 62.4 Intake & Output: Intake and Output for Last 24 Hours 03/02/23 03/03/23 03/04/23 23:59 23:59 23:59 Intake Total 1130 / 1500 690 / 690 800 / 800 Balance 1130 / 1500 690 / 690 800 / 800 Lab / Micro Data 03/01/23 05:29 03/04/23 06:52 Labs: Laboratory Results - last 24 hr 03/03/23 11:22: POC Glucose 168 H 03/03/23 16:29: POC Glucose 198 H 03/03/23 20:45: POC Glucose 141 H 03/04/23 06:52: Sodium 138, Potassium 3.6, Chloride 103, Carbon Dioxide 35.0 H, Anion Gap 0 L, BUN 37 H, Creatinine 1.25, Estim Creat Clear Calc 69.91, Est GFR (MDRD) Af Amer 78, Est GFR (MDRD) Non-Af 65, BUN/Creatinine Ratio 29.6 H, Glucose 119 H, Calcium 8.3 L Rhythm Strip Rhythm Strip: Sinus Rhythm Rate: 83 Ectopy: None Physical Exam Const alert and no apparent distress Extremity General Extremity: edema bilateral lower extremity Details: severe Assessment & Plan Assessment/Plan (1) Acute on chronic heart failure with normal ejection fraction: PLAN: Acute on chronic HFpEF with chronic cor pulmonale/pulmonary hypertension: Echo from [place] from 04/27/2022. It was of poor quality.Patient 2D echo on 04/19/2022 reported LV not well visualized cannot comment on wall motion or EF. RVSP 46 mmHg. Started on Lasix 40 mg IV twice daily. Will increase to 60 TID. Patient on metoprolol 100 mg twice daily. Had negative dobutamine stress test in 2020. 2 serial troponins are negative therefore ACS ruled out. Patient did not have chest pain or pressure. BNP spuriously low due to morbid obesity. Fluid restrict 1.5 liters/d. Patient was drinking at least 1/2 gallon of liquids/day. Pt showing motivation to follow dietary restrictions. DC home with furosemide 60 BID. Weights as able (2) Hypertensive urgency: PLAN: Uncontrolled hypertension: Blood pressure in systolic 180s to 190s. Continue home medication lisinopril 40 mg daily. Started on Hydralazine and nitrate for control of blood pressure and heart failure exacerbation. Labetalol 20 mg IV as needed for SBP more than 190 mmHg. PLAN: Plan Chronic conditions: * Uncontrolled diabetes mellitus: Patient has type 2 diabetes mellitus. Glucose 258. a1c 8.3. Continue glargine, prandial insulin, SSI. * Right knee wound with a scab from fall and surrounding cellulitis: Started on IV ceftriaxone daily. Wound care nurse ordered. Knee x-ray shows no radiographic evidence of osteomyelitis. Severe arthrosis. * Super morbid obesity with obstructive sleep apnea/obesity hypoventilation syndrome on CPAP: CPAP ordered. Need to follow-up in pulmonary clinic. As per last cardiology visit patient is high risk for morbid obesity surgery also. * GERD: PPI * hyperlipidemia * bilateral peripheral neuropathy * degenerative arthritis of knees * PTSD * ADHD. * HTN: metoprolol, linsipril, metoprolol, * nicotine abuse: chews a can/d. nicotine patch. VTE prophylaxis: LMWH Code status: full Disposition: TBD.
[2023-03-04 08:51] LABS: Bedside Glucose 121 mg/dL (74-106)
[2023-03-04] MEDS: Metoprolol Tartrate 100 MG Tablet PO (10:17)
[2023-03-04] MEDS: Spironolactone 25 MG Tablet PO (10:17)
[2023-03-04] MEDS: Enoxaparin 40 MG/0.4 ML Syringe SC (10:18)
[2023-03-04] MEDS: amLODIPine 5 MG Tablet PO (10:18)
[2023-03-04] MEDS: Pantoprazole Sodium 40 MG Tablet PO (10:18)
[2023-03-04] MEDS: Lisinopril 40 MG Tablet PO (10:19)
[2023-03-04] MEDS: 0.9% Saline Lock 10 ML Syringe IV (11:25)
[2023-03-04] MEDS: Furosemide 100 MG/10 ML Vial 60 MG IV (11:27)
[2023-03-04] MEDS: Insulin Glargine-YFGN 100 UNIT/ML Pen 50 UNIT SC (11:40)
[2023-03-04] MEDS: Insulin Lispro 100 UNIT/ML INSULN.PEN 15 UNIT SC (11:40)
[2023-03-04] MEDS: Insulin Lispro 100 UNIT/ML INSULN.PEN SC (11:41)
--- NOTE | 2023-03-04 11:57 | DS.PCM_ITS ---
Providers Date of Admission: 02/28/23 Primary Care Physician: Dr. Andrea Alston MD Consultations 02/28/23 21:19 Consult: Onc/Wound/electrical controls designer Routine Comment: Reason for Consult:: right knee wound Reason For Visit: CHF EXA Diagnosis Discharge Diagnosis (1) Acute on chronic heart failure with normal ejection fraction: Status: Acute Code(s): I50.33 - Acute on chronic diastolic (congestive) heart failure Plan: Acute on chronic HFpEF with chronic cor pulmonale/pulmonary hypertension: Echo from [place] from 04/27/2022. It was of poor quality.Patient 2D echo on 04/19/2022 reported LV not well visualized cannot comment on wall motion or EF. RVSP 46 mmHg. Started on Lasix 40 mg IV twice daily. Will increase to 60 TID. Patient on metoprolol 100 mg twice daily. Had negative dobutamine stress test in 2020. 2 serial troponins are negative therefore ACS ruled out. Patient did not have chest pain or pressure. BNP spuriously low due to morbid obesity. Fluid restrict 1.5 liters/d. Patient was drinking at least 1/2 gallon of liquids/day. Pt showing motivation to follow dietary restrictions. DC home with furosemide 60 BID. Weights as able (2) Hypertensive urgency: Status: Acute Code(s): I16.0 - Hypertensive urgency Plan: Uncontrolled hypertension: Blood pressure in systolic 180s to 190s. Continue home medication lisinopril 40 mg daily. Started on Hydralazine and nitrate for control of blood pressure and heart failure exacerbation. Labetalol 20 mg IV as needed for SBP more than 190 mmHg. Plan Chronic conditions: * Uncontrolled diabetes mellitus: Patient has type 2 diabetes mellitus. Glucose 258. a1c 8.3. Continue glargine, prandial insulin, SSI. * Right knee wound with a scab from fall and surrounding cellulitis: Started on IV ceftriaxone daily. Wound care nurse ordered. Knee x-ray shows no radiographic evidence of osteomyelitis. Severe arthrosis. * Super morbid obesity with obstructive sleep apnea/obesity hypoventilation synd moon on CPAP: CPAP ordered. Need to follow-up in pulmonary clinic. As per last cardiology visit patient is high risk for morbid obesity surgery also. * GERD: PPI * hyperlipidemia * bilateral peripheral neuropathy * degenerative arthritis of knees * PTSD * ADHD. * HTN: metoprolol, linsipril, metoprolol, * nicotine abuse: chews a can/d. nicotine patch. VTE prophylaxis: LMWH Code status: full Disposition: TBD. Medications at Discharge Home Medications acetaminophen 650 mg tablet,extended release (Arthritis Pain Relief (acetaminophen) ER) 1,300 mg PO Q8H PRN pain 05/14/22 albuterol sulfate 90 mcg/actuation aerosol inhaler 2 puff inhalation Q6H PRN shortness of breath or wheezing 05/14/22 atorvastatin 40 mg tablet 40 mg PO QHS cholesterol 05/14/22 insulin degludec 200 unit/mL (3 mL) subcutaneous pen (Tresiba FlexTouch U-200 insulin) 92 unit subcut DAILY diabetes 05/14/22 lisinopril 40 mg tablet 40 mg PO BID blood pressure 05/14/22 omeprazole 40 mg capsule,delayed release 40 mg PO DAILY acid reflux 05/14/22 potassium citrate 5 mEq (540 mg) tablet,extended release 5 meq PO BID potassium supplement 05/14/22 pregabalin 150 mg capsule 150 mg PO TID neuropathy 05/14/22 insulin lispro 100 unit/mL subcutaneous pen (Humalog Tempo Pen (U-100) Insulin) 10 unit subcut TIDCM diabetes 05/25/22 metoprolol tartrate 50 mg tablet 50 mg PO BID heart 05/25/22 amlodipine 5 mg tablet 5 mg PO DAILY blood pressure 02/28/23 spironolactone 25 mg tablet 25 mg PO DAILY diuretic 02/28/23 furosemide 20 mg tablet 60 mg (3 x 20 mg) PO BID 30 days #180 tabs 03/04/23 Hospital Course Operations None Procedures None Summary of Care Provided Minutes Spent on Discharge: 32 Hospital Course: Is a 53-year-old male presents with increasing lower extremity edema, increased weight and shortness of breath. Patient was CHF exacerbation. Patient was diuresing well and diuretics were increased to 60 3 times daily but subsequent taken back down to twice daily. Patient has slowly put on at least 60 pounds over the past several months. He admits to fluid indiscretion drinking at least a half a gallon of liquids per day and not abiding by dietary restrictions. He is expressing desires to follow-up with that and appears to be very motivated. Did discuss with him about 1.5 L/day as well as salt restrictions. Patient is to follow-up to have eventual bariatric surgery which I think will help with many of his medical conditions including his heart failure. Patient advised to check his weight daily but he is essentially wheelchair-bound so getting up and standing on the scale would be very cumbersome for him. Weight / BMI Weight Weight: 191.7 kg Body Mass Index (BMI) 62.4 ABG / Lab / Microbiology Data 03/01/23 05:29 03/04/23 06:52 Laboratory: Laboratory Results - last 24 hr 03/03/23 11:22: POC Glucose 168 H 03/03/23 16:29: POC Glucose 198 H 03/03/23 20:45: POC Glucose 141 H 03/04/23 06:52: Sodium 138, Potassium 3.6, Chloride 103, Carbon Dioxide 35.0 H, Anion Gap 0 L, BUN 37 H, Creatinine 1.25, Estim Creat Clear Calc 69.91, Est GFR (MDRD) Af Amer 78, Est GFR (MDRD) Non-Af 65, BUN/Creatinine Ratio 29.6 H, Glucose 119 H, Calcium 8.3 L 03/04/23 08:23: POC Glucose 121 H D/C Instructions Discharge Diet: 2000 Calorie Control Diet, 8 Cup Fluid Restriction and - (1.5 L of fluid per day) Call your doctor if you observe: Shortness of breath Meaningful Use Info Meaningful Use Diagnoses (Choose all that apply): CHF CHF ZULMA/ARB ordered at discharge?: Yes Documented LVEF (%): 0 Discharge Plan Admission Admit Date/Time: 02/28/23 20:57 Primary Reason for Your Visit: CHF exacerbation Attending Provider: Isael Garcia Primary Care Provider: Andrea Alston Consulting Providers: Jed Schulz Instructions Additional Instructions / Restrictions: Your furosemide to be increased from 40 to 60 mg twice daily. As you are aware you are drinking too much fluids and you will need to limit your total fluid intake per day to 1.5 L daily. Also restricting her sodium intake to 2 g of salt per day. If you are able, check your weight preferably daily but if not that frequent at least weekly and keep a record of that. Follow up with your bariatric surgeon as previously scheduled. Discharge Orders/Prescriptions Prescriptions: New furosemide 20 mg tablet 60 mg PO BID 30 Days Qty: 180 0RF Continued albuterol sulfate 90 mcg/actuation HFA aerosol inhaler 2 puff inhalation Q6H PRN (Reason: shortness of breath or wheezing) atorvastatin 40 mg tablet 40 mg PO QHS insulin degludec [Tresiba FlexTouch U-200] 200 unit/mL (3 mL) insulin pen 92 unit subcut DAILY Patient Comments: INJECT 92 UNITS sub-q IN THE MORNING lisinopril 40 mg tablet 40 mg PO BID pregabalin 150 mg capsule 150 mg PO TID Patient Comments: take 1 capsule by mouth three times a day acetaminophen [Arthritis Pain Relief (acetam)] 650 mg tablet extended release 1,300 mg PO Q8H PRN (Reason: pain) potassium citrate 5 mEq (540 mg) tablet extended release 5 meq PO BID insulin lispro [Humalog Tempo Pen(U-100)Insuln] 100 unit/mL insulin pen 10 unit subcut TIDCM Rx Instructions: Take 10 un before each meal metoprolol tartrate 50 mg tablet 50 mg PO BID amlodipine 5 mg tablet 5 mg PO DAILY spironolactone 25 mg tablet 25 mg PO DAILY Discontinued furosemide 40 mg tablet 40 mg PO BID No Action omeprazole 40 mg capsule,delayed release(DR/EC) 40 mg PO DAILY Referrals / Follow Up: [facility] [Provider Group] - Within 3 Months Andrea Alston MD [Primary Care Provider] - Within 2 Weeks Disposition Disposition (needs filled in before D/C Order can be placed): Home, Self Care
--- NOTE | 2023-03-04 12:17 | CASEMGMT ---
Patient has order for discharge. RN CM in to discuss needs at discharge. Patient would like tub bench at discharge, script received and provided in discharge instructions. Patient states he will take to [facility] to fill. RN CM provided patient with [employer] information for additional DME needs. Patient denied further needs at discharge. Patient had no further questions or concerns.
[2023-03-04 12:22] LABS: Bedside Glucose 187 mg/dL (74-106)
== END 2023-03-04 13:58 | disposition home or self-care (01) | DRG 194 ==
LOC: ED 18:24 → PCU 21:00
PROVIDERS: Admitting Provider Internal Medicine; Emergency Provider Emergency Medicine; PCP Family Medicine
DX: I11.0 Hypertensive heart disease with heart failure (principal); I27.20 Pulmonary hypertension, unspecified; E66.2 Morbid (severe) obesity with alveolar hypoventilation; I27.81 Cor pulmonale (chronic); L03.115 Cellulitis of right lower limb; E11.42 Type 2 diabetes mellitus with diabetic polyneuropathy; I50.33 Acute on chronic diastolic (congestive) heart failure; Z79.4 Long term (current) use of insulin; Z68.44 Body mass index [BMI] 60.0-69.9, adult; I16.0 Hypertensive urgency; E78.5 Hyperlipidemia, unspecified; M17.0 Bilateral primary osteoarthritis of knee; F12.90 Cannabis use, unspecified, uncomplicated; F90.9 Attention-deficit hyperactivity disorder, unspecified type; F43.10 Post-traumatic stress disorder, unspecified; Z87.891 Personal history of nicotine dependence
CPT/HCPCS: 36415; 71045; 73562; 80048; 80061; 82962; 83036; 83735; 83880; 84443; 84484; 85025; 93005; 94668; 97802; 99285; J7040; 90686; A4216; J1940

== ENCOUNTER 2023-03-04 19:00 | Emergency (ER) | payer MEDICAID, SELFPAY ==
[2023-03-04 19:01] VITALS: BP 180/92; PULSE 80; RESP 16; TEMP 36.6; O2SAT 93
--- NOTE | 2023-03-04 19:45 | EDS_ITS ---
HPI History of Present Illness Chief Complaint: Edema [facility] Medical History Abdominal swelling Acute respiratory failure with hypoxia and hypercapnia ADHD Anxiety Asthenia CHF (congestive heart failure) Fluid overload GERD (gastroesophageal reflux disease) Hyperlipidemia MDD (major depressive disorder) Morbid obesity Neuropathy Obesity hypoventilation syndrome KAVON on CPAP Pain and swelling of lower leg PTSD (post-traumatic stress disorder) Type 2 diabetes mellitus Home Medications acetaminophen 650 mg tablet,extended release (Arthritis Pain Relief (acetaminophen) ER) 1,300 mg PO Q8H PRN pain 05/14/22 [History Last Taken Unknown] albuterol sulfate 90 mcg/actuation aerosol inhaler 2 puff inhalation Q6H PRN shortness of breath or wheezing 05/14/22 [History Last Taken Unknown] atorvastatin 40 mg tablet 40 mg PO QHS cholesterol 05/14/22 [History Last Taken 02/27/23] insulin degludec 200 unit/mL (3 mL) subcutaneous pen (Tresiba FlexTouch U-200 insulin) 92 unit subcut DAILY diabetes 05/14/22 [History Last Taken 02/27/23] lisinopril 40 mg tablet 40 mg PO BID blood pressure 05/14/22 [History Last Taken 02/28/23 10:00] omeprazole 40 mg capsule,delayed release 40 mg PO DAILY acid reflux 05/14/22 [History Last Taken 02/28/23] potassium citrate 5 mEq (540 mg) tablet,extended release 5 meq PO BID potassium supplement 05/14/22 [History Last Taken 02/28/23 10:00] pregabalin 150 mg capsule 150 mg PO TID neuropathy 05/14/22 [History Last Taken Unknown] insulin lispro 100 unit/mL subcutaneous pen (Humalog Tempo Pen (U-100) Insulin) 10 unit subcut TIDCM diabetes 05/25/22 [History Last Taken Unknown] metoprolol tartrate 50 mg tablet 50 mg PO BID heart 05/25/22 [History Last Taken 02/28/23 10:00] amlodipine 5 mg tablet 5 mg PO DAILY blood pressure 02/28/23 [History Last Taken 02/28/23] spironolactone 25 mg tablet 25 mg PO DAILY diuretic 02/28/23 [History Last Taken 02/28/23] furosemide 20 mg tablet 60 mg (3 x 20 mg) PO BID 30 days #180 tabs 03/04/23 [Rx Last Taken Unknown] Allergy/AdvReac Type Severity Reaction Status Date / Time hydrochlorothiazide AdvReac Chest Verified 03/04/23 19:00 tightness Family History (Updated 02/28/23 @ 21:37 by Kristal Rizzo) Mother Diabetes CAD (coronary artery disease) Hypertension Hyperchloremia Non-alcoholic cirrhosis Father Diabetes Hypertension Hyperchloremia Surgical History Hx of cholecystectomy Hx of knee surgery Hx of tracheostomy Social History Smoking Status: Former smoker alcohol intake: never substance use type: marijuana caffeine: No EXAM Physical Exam Const Vital Signs: 03/04/23 19:01 03/04/23 19:56 03/04/23 19:56 Temperature 97.8 F Temperature Source Temporal Pulse Rate 80 82 Respiratory Rate 16 18 Respiratory Effort Short of Breath Respiratory Pattern Normal Blood Pressure 180/92 H 170/63 H Blood Pressure Mean 121 98 Pulse Ox 93 92 Oxygen Delivery Method Room Air Room Air MDM MDM MDM Narrative Medical decision making narrative: HISTORY OF PRESENT ILLNESS: 53-year-old male here with concern for feeling up again. States he really a dmitted for congestive heart failure. Per nursing is noted he was hypoxic in triage to 86%. REVIEW OF SYSTEMS: Pertinent positives: Shortness of breath, lower extremity edema Pertinent negatives: ELOPED PRIOR TO FULL ros PHYSICAL EXAM: Nursing triage notes reviewed, Vital signs reviewed Patient eloped prior to my physical exam MEDICAL DECISION MAKING: Chief Complaint: Edema External records reviewed: Prior records reviewed: Discharge today after admission for acute on chronic heart failure. Echocardiogram 2021 shows no obvious ejection fraction given poor visualization Factors affecting care: CHF, type 2 diabetes, obesity, hyperlipidemia, hypertension Social determinants of health: Former smoker MDM Narrative: Patient was initially hypertensive otherwise hemodynamically stable, afebrile, nontoxic-appearing I considered the following differential diagnosis: CHF, Patient eloped prior to my evaluation Impression: 1. Edema 2. Poorly controlled hypertension 3. Eloped from the ED Dispo: Eloped from the ED Discharge Plan Triage Chief Complaint: Edema ED Provider: Mamadou Julian Dx/Rx/DC Orders Clinical Impression: Eloped from emergency department Prescriptions: No Action albuterol sulfate 90 mcg/actuation HFA aerosol inhaler 2 puff inhalation Q6H PRN (Reason: shortness of breath or wheezing) atorvastatin 40 mg tablet 40 mg PO QHS insulin degludec [Tresiba FlexTouch U-200] 200 unit/mL (3 mL) insulin pen 92 unit subcut DAILY Patient Comments: INJECT 92 UNITS sub-q IN THE MORNING lisinopril 40 mg tablet 40 mg PO BID pregabalin 150 mg capsule 150 mg PO TID Patient Comments: take 1 capsule by mouth three times a day acetaminophen [Arthritis Pain Relief (acetam)] 650 mg tablet extended release 1,300 mg PO Q8H PRN (Reason: pain) omeprazole 40 mg capsule,delayed release(DR/EC) 40 mg PO DAILY potassium citrate 5 mEq (540 mg) tablet extended release 5 meq PO BID insulin lispro [Humalog Tempo Pen(U-100)Insuln] 100 unit/mL insulin pen 10 unit subcut TIDCM Rx Instructions: Take 10 un before each meal metoprolol tartrate 50 mg tablet 50 mg PO BID amlodipine 5 mg tablet 5 mg PO DAILY spironolactone 25 mg tablet 25 mg PO DAILY furosemide 20 mg tablet 60 mg PO BID 30 Days Qty: 180 0RF Primary Care Provider: Andrea Alston Referrals: Andrea Alston MD [Primary Care Provider] - Disposition Disposition: Elopement Discharge Date/Time: 03/04/23 19:57
--- NOTE | 2023-03-04 19:50 | ED.RN ---
pt declines medical care today. stated I feel so much better since I got here. dr. graham aware.
[2023-03-04 19:56] VITALS: BP 170/63; PULSE 82; RESP 18; O2SAT 92
== END 2023-03-04 19:57 | disposition left against medical advice (07) ==
LOC: ED 19:55
PROVIDERS: Emergency Provider Emergency Medicine; PCP Family Medicine; Visit Provider Emergency Medicine
DX: R60.9 Edema, unspecified (principal); I50.9 Heart failure, unspecified; I11.0 Hypertensive heart disease with heart failure; F12.90 Cannabis use, unspecified, uncomplicated; G47.33 Obstructive sleep apnea (adult) (pediatric); E66.9 Obesity, unspecified; Z87.891 Personal history of nicotine dependence
CPT/HCPCS: 99282